=== PATIENT | male | born 1995 | race Caucasian/White ===

== ENCOUNTER 2017-11-09 17:17 | Emergency (ER) | payer OTHER ==
--- NOTE | 2017-11-09 17:29 | PDOC ---
History of Present Illness - General History Source: Patient Exam Limitations: No Limitations - History of Present Illness Initial Comments: 11/09/17 17:55 The patient is a 22 year old male with no significant past medical history, who presents to the emergency room today with a laceration on his left 3rd digit. The patient explains that the laceration occurred at 4:30pm this afternoon while he was cutting cooked chicken at work. The patient wrapped the bleeding laceration and was brought to the ED. The patient states that he never had a tetanus shot. Denies any other injuries. Allergies: NKDA <Eva Moreira - Last Filed: 11/09/17 18:08> <Sabrina Fontenot - Last Filed: 11/09/17 18:48> - General Chief Complaint: Laceration Stated Complaint: LEFT HAND LACERATION Time Seen by Provider: 11/09/17 17:29 Past History <Eva Moreira - Last Filed: 11/09/17 18:08> - Past Medical History COPD: No Other medical history: DENIES - Suicide/Smoking/Psychosocial Hx Smoking History: Never smoked Have you smoked in the past 12 months: No Information on smoking cessation initiated: No Hx Alcohol Use: No Drug/Substance Use Hx: No <Sabrina Fontenot - Last Filed: 11/09/17 18:48> - Past Medical History Allergies/Adverse Reactions: Allergies Allergy/AdvReac Type Severity Reaction Status Date / Time No Known Drug Allergies Allergy Verified 11/09/17 17:18 Home Medications: Ambulatory Orders NK [No Known Home Medication] 11/09/17 Review of Systems - Review of Systems Able to Perform ROS?: Yes Comments:: 11/09/17 17:55 GENERAL/CONSTITUTIONAL: No fever or chills. No weakness. HEAD, EYES, EARS, NOSE AND THROAT: No change in vision. No ear pain or discharge. No sore throat. CARDIOVASCULAR: No chest pain or shortness of breath. SKIN: +laceration on the left 3rd digit. NEUROLOGIC: No headache, vertigo, loss of consciousness, or change in strength/ sensation. ALLERGIC/IMMUNOLOGIC: No hives or skin allergy. <Eva Moreira - Last Filed: 11/09/17 18:08> *Physical Exam - Vital Signs Last Vital Signs Temp Pulse Resp BP Pulse Ox 98.2 F 65 18 129/87 99 11/09/17 17:17 11/09/17 17:17 11/09/17 17:17 11/09/17 17:17 11/09/17 17:17 - Physical Exam Comments: 11/09/17 17:55 GENERAL: Awake, alert, and fully oriented, in no acute distress HEAD: No signs of trauma EYES: PERRLA, EOMI, sclera anicteric, conjunctiva clear LEFT HAND: +There is a 1cm rectangular flap laceration on the left 3rd digit that exposes some subcutaneous tissue and is half-way between the PIP and DIP. Intact capillary refill. Intact strength <Eva Moreira - Last Filed: 11/09/17 18:08> - Vital Signs Last Vital Signs Temp Pulse Resp BP Pulse Ox 98.2 F 65 18 129/87 99 11/09/17 17:17 11/09/17 17:17 11/09/17 17:17 11/09/17 17:17 11/09/17 17:17 <Sabrina Fontenot - Last Filed: 11/09/17 18:48> Procedures - Laceration/Wound Repair Left Finger 3rd digit Wound Length: to 2.5 cm Wound Explored: clean Wound's Depth, Shape: flap Irrigated w/ Saline: Yes Anesthesia: 1% Lidocaine Wound Repaired With: Sutures Suture Size/Type: 5:0 Number of Sutures: 8 Sterile Dressing Applied: Yes <Eva Moreira - Last Filed: 11/09/17 18:08> Medical Decision Making - Medical Decision Making 11/09/17 18:12 Pt presents to the Ed complaining of laceration to the L 3rd digit with a kitchen knife. Repaired in the Ed. will discharge home. <Sabrina Fontenot - Last Filed: 11/09/17 18:48> *DC/Admit/Observation/Transfer - Attestations Scribe Attestion: 11/09/17 17:58 Documentation prepared by ANAYELI Sanchez, acting as medical record specialist for Sabrina Fontenot MD <Eva Moreira - Last Filed: 11/09/17 18:08> <Sabrina Fontenot - Last Filed: 11/09/17 18:48> Diagnosis at time of Disposition: Finger laceration Qualifiers: Encounter type: initial encounter Finger: middle finger Damage to nail status: without damage Foreign body presence: without foreign body Laterality: left Qualified Code(s): S61.213A - Laceration without foreign body of left middle finger without damage to nail, initial encounter - Discharge Dispostion Condition at time of disposition: Stable - Patient Instructions Printed Discharge Instructions: DI for Laceration Repair Additional Instructions: return to the ED for fever, bleeding from laceration, pain and swelling, pus coming from the laceration. keep the wound clean and dry for the first 24 hours. after that, you can wash your hand with soap and water but do not to things that require soaking your hand in dirty water such as doing the dishes. Return in 7 days for suture removal.
[2017-11-09] MEDS ORDERED: LIDOCAINE HCL 2% (50ML VIAL) INF ONE (17:31)
[2017-11-09 17:39] VITALS: BP 129/87; PULSE 65; TEMP 98.2; BMI 17.4
[2017-11-09] MEDS ORDERED: DIPHTH,PERTUSS(ACELL),TET 0.5 ML DISP.SYRIN IM ONE (17:43)
== END 2017-11-09 18:25 | disposition home or self-care (01) ==
LOC: FER 17:17
PROC: 0HQGXZZ Repair Left Hand Skin, External Approach (ICD-10-PCS; principal; 2017-11-09)
PROC: 3E0234Z Introduction of Serum, Toxoid and Vaccine into Muscle, Percutaneous Approach (ICD-10-PCS; 2017-11-09)
DX: S61.213A Laceration without foreign body of left middle finger without damage to nail, initial encounter (principal); W26.0XXA Contact with knife, initial encounter; Y93.G1 Activity, food preparation and clean up; Y92.89 Other specified places as the place of occurrence of the external cause; Y99.0 Civilian activity done for income or pay
CPT/HCPCS: 90715; 99283-25